=== PATIENT | female | born 1975 | race Caucasian/White ===

== ENCOUNTER 2017-03-28 22:44 | Emergency (ER) | payer BC ==
[~2017-03-28] VITALS: Ht 162.6 cm; Wt 97.7 kg
[~2017-03-28 22:44] MED LIST: AMITRIPTYLINE H10 MG PO; DEXILANT60 MG PO; GABAPENTIN300 MG PO; HYDROCHLOROTHIA25 MG PO; HYDROCODON-ACE1 EAC5 PO; KEPPRA250 MG PO; KLONOPIN1 MG PO; LAMICTAL XR100 MG PO; LISINOPRIL40 MG PO; MIRTAZAPINE15 MG PO; MONTELUKAST SOD10 MG PO; MORPHINE SULFAT15 M1 PO; MUSCLE RELAXER; PERCOCET 5/31 TABLET PO; PROPRANOLOL HCL60 MG PO; TOPIRAMATE50 MG PO; TRAZODONE HCL50 MG PO; VENLAFAXINE HCL75 M3 PO; VICODIN 5-3001 EACH PO; VIIBRYD20 MG PO; ZESTRIL,PRINIVI40 MG PO
[2017-03-29] MEDS ORDERED: TRAMADOL HCL50 MG PO (00:12)
[2017-03-29 01:19] VITALS: BP 148/109
== END 2017-03-29 01:20 | disposition home or self-care (01) ==
LOC: EME 22:44
DX: S80.02XA Contusion of left knee, initial encounter (principal); W06.XXXA Fall from bed, initial encounter; F17.200 Nicotine dependence, unspecified, uncomplicated
CPT/HCPCS: 73502; 73552; 73564; 73590; 99281; 99283; J3010